=== PATIENT | female | born 1965 | race Caucasian/White ===

== ENCOUNTER 2018-08-17 13:41 | Emergency (ER) | payer OTHER ==
--- NOTE | 2018-08-17 15:22 | ER ---
Nurse's Notes [facility] Name: Zohra De La Garza Age: 53 yrs Sex: Female : 1965 Arrival Date: 08/17/2018 Time: 13:45 Bed 28 Private MD: None, None Diagnosis: Local infection of the skin and subcutaneous tissue, unspecified Presentation: 08/17 13:45 Presenting complaint: Patient states: i got bit by a bunch of little black ants tw2 yesterday morning and my foot has swollen up and it is red. Transition of care: patient was not received from another setting of care. Onset of symptoms was August 17, 2018. Risk Assessment: Do you want to hurt yourself or someone else? Patient reports no desire to harm self or others. Initial Sepsis Screen: Does the patient meet any 2 criteria? No. Patient's initial sepsis screen is negative. Does the patient have a suspected source of infection? No. Patient's initial sepsis screen is negative. Care prior to arrival: None. 13:45 Method Of Arrival: Ambulatory tw2 13:45 Acuity: LOU 4 tw2 Triage Assessment: 16:24 Bite description: by "black ant". 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 - Social history:: Smoking status: Patient/guardian denies using tobacco. - Ebola Screening: : Patient denies travel to an Ebola-affected area in the 21 days before illness onset. Screenin:59 Abuse screen: Denies threats or abuse. Denies injuries from another. Nutritional aj screening: No deficits noted. Tuberculosis screening: No symptoms or risk factors identified. Fall Risk None identified. Assessment: 14:59 General: Appears in no apparent distress. comfortable, obese, Behavior is calm, aj cooperative, appropriate for age. Pain: Denies pain. Neuro: Level of Consciousness is awake, alert, obeys commands, Oriented to person, place, time, situation, Appropriate for age. Respiratory: Airway is patent Respiratory effort is even, unlabored, Respiratory pattern is regular, symmetrical. Derm: Skin is intact, is healthy with good turgor, Skin is pink, warm \\T\\ dry. normal, redness and inflammation to right ankle, multiple breaks in skin noted. 16:22 Reassessment: Patient appears in no apparent distress at this time. No changes from aj previously documented assessment. Patient and/or family updated on plan of care and expected duration. Pain level reassessed. Patient is alert, oriented x 3, equal unlabored respirations, skin warm/dry/pink. Vital Signs: 13:46 BP 150 / 99; Pulse 90; Resp 17; Temp 97.3(TE); Pulse Ox 99% on R/A; Pain 5/10; tw2 ED Course: 13:45 Patient arrived in ED. sb2 13:45 None, None is Private Physician. sb2 13:46 Triage completed. tw2 13:47 Arm band placed on. tw2 14:43 Rebeca Cobb FNP-C [facility]. kb 14:43 Lucas Bangura MD is Attending Physician. kb 14:59 Dara Jordan, RN is Primary Nurse. aj 14:59 Patient has correct armband on for positive identification. aj 16:22 No provider procedures requiring assistance completed. Patient did not have IV access aj during this emergency room visit. Administered Medications: 16:05 Drug: Bactrim (160 mg-800 mg (DS) 1 tablet Route: PO; aj 16:24 Follow up: Response: No adverse reaction aj 16:05 Drug: KeFLEX 500 mg Route: PO; aj 16:25 Follow up: Response: No adverse reaction aj Outcome: 15:21 Discharge ordered by . kb 16:22 Discharged to home ambulatory. aj 16:22 Condition: good 16:22 Discharge instructions given to patient, Instructed on discharge instructions, follow up and referral plans. medication usage, Demonstrated understanding of instructions, follow-up care, medications, Prescriptions given X 4. 16:26 Patient left the ED. aj Signatures: Rebeca Cobb FNP-C PASTRY ARTIST-Ckb Dara Jordan, RN RN aj Dasha Nieves RN RN tw2 Yeni Garcia sb2
--- NOTE | 2018-08-17 15:22 | EDPHYS ---
Physician Documentation [facility] Name: Zohra De La Garza Age: 53 yrs Sex: Female : 1965 Arrival Date: 08/17/2018 Time: 13:45 Bed 28 Private MD: None, None ED Physician Lucas Bangura HPI: 08/17 15:20 This 53 yrs old Female presents to ER via Ambulatory with complaints of kb Insect Bite. 15:20 the patient presents with a swollen area of the lateral aspect of right foot. kb Description: erythematous, swollen, warm. Onset: The symptoms/episode began/occurred yesterday. Possible cause(s): ant bites. Associated signs and symptoms: Pertinent positives: erythema, swelling, Pertinent negatives: discharge, drainage, fever. Modifying factors: the symptoms are alleviated by nothing, the symptoms are aggravated by nothing. Severity of symptoms: At their worst the symptoms were mild, in the emergency department the symptoms are unchanged. The patient has not experienced similar symptoms in the past. The patient has not recently seen a physician. 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 - Social history:: Smoking status: Patient/guardian denies using tobacco. - Ebola Screening: : Patient denies travel to an Ebola-affected area in the 21 days before illness onset. ROS: 15:19 Constitutional: Negative for fever, chills, and weight loss, Cardiovascular: Negative kb for chest pain, palpitations, and edema, Respiratory: Negative for shortness of breath, cough, wheezing, and pleuritic chest pain, Abdomen/GI: Negative for abdominal pain, nausea, vomiting, diarrhea, and constipation, MS/Extremity: Negative for injury and deformity, Neuro: Negative for headache, weakness, numbness, tingling, and seizure. 15:19 Skin: Positive for erythema, swelling, of the lateral aspect of right foot. Exam: 15:19 Constitutional: This is a well developed, well nourished patient who is awake, alert, kb and in no acute distress. Head/Face: Normocephalic, atraumatic. Chest/axilla: Normal chest wall appearance and motion. Nontender with no deformity. No lesions are appreciated. Cardiovascular: Regular rate and rhythm with a normal S1 and S2. No gallops, murmurs, or rubs. Normal PMI, no JVD. No pulse deficits. Respiratory: Lungs have equal breath sounds bilaterally, clear to auscultation and percussion. No rales, rhonchi or wheezes noted. No increased work of breathing, no retractions or nasal flaring. Abdomen/GI: Soft, non-tender, with normal bowel sounds. No distension or tympany. No guarding or rebound. No evidence of tenderness throughout. MS/ Extremity: Pulses equal, no cyanosis. Neurovascular intact. Full, normal range of motion. Neuro: Awake and alert, GCS 15, oriented to person, place, time, and situation. Cranial nerves II-XII grossly intact. Motor strength 5/5 in all extremities. Sensory grossly intact. Cerebellar exam normal. Normal gait. 15:19 Skin: cellulitis, that is minimal, on the lateral aspect of right foot. Vital Signs: 13:46 BP 150 / 99; Pulse 90; Resp 17; Temp 97.3(TE); Pulse Ox 99% on R/A; Pain 5/10; tw2 MDM: 14:43 Patient medically screened. kb 15:19 Data reviewed: vital signs, nurses notes. Data interpreted: Pulse oximetry: on room air kb is 99 %. Interpretation: normal. Counseling: I had a detailed discussion with the patient and/or guardian regarding: the historical points, exam findings, and any diagnostic results supporting the discharge/admit diagnosis, the need for outpatient follow up, a family practitioner, to return to the emergency department if symptoms worsen or persist or if there are any questions or concerns that arise at home. Administered Medications: 16:05 Drug: Bactrim (160 mg-800 mg (DS) 1 tablet Route: PO; aj 16:24 Follow up: Response: No adverse reaction aj 16:05 Drug: KeFLEX 500 mg Route: PO; aj 16:25 Follow up: Response: No adverse reaction aj Disposition: 17:37 Co-signature as Attending Physician, Lucas Bangura MD. rn Disposition: 08/17/18 15:21 Discharged to Home. Impression: Local infection of the skin and subcutaneous tissue, unspecified. - Condition is Stable. - Discharge Instructions: Insect Bite, [id number]. - Prescriptions for Diflucan 150 mg Oral Tablet - take 1 tablet by ORAL route one time for 1 day; 1 tablet. Keflex 500 mg Oral Capsule - take 1 capsule by ORAL route every 8 hours for 7 days; 21 capsule. Tramadol 50 mg Oral Tablet - take 1 tablet by ORAL route every 8 hours as needed; 12 tablet. Bactrim DS 800- 160 mg Oral Tablet - take 1 tablet by ORAL route every 12 hours for 7 days; 14 tablet. - Medication Reconciliation Form, Thank You Letter, Antibiotic Education, Prescription Opioid Use form. - Follow up: Private Physician; When: 2 - 3 days; Reason: Recheck today's complaints, Continuance of care, Re-evaluation by your physician. Follow up: Emergency Department; When: As needed; Reason: Worsening of condition. Signatures: Rebeca Cobb, TY CHAVIS-Dara Charlton RN RN aj Nieto, Roman, MD MD rn Wise, Tara, RN RN tw2 Corrections: (The following items were deleted from the chart) 16:26 15:21 08/17/2018 15:21 Discharged to Home. Impression: Local infection of the skin and aj subcutaneous tissue, unspecified. Condition is Stable. Forms are Medication Reconciliation Form, Thank You Letter, Antibiotic Education, Prescription Opioid Use. Follow up: Private Physician; When: 2 - 3 days; Reason: Recheck today's complaints, Continuance of care, Re-evaluation by your physician. Follow up: Emergency Department; When: As needed; Reason: Worsening of condition. kb
[2018-08-17] MEDS ORDERED: CEPHALEXIN 250 MG CAP ONE (16:04)
[2018-08-17] MEDS ORDERED: SMZ./TMP. 800/160 MG TABLET ONE (16:05)
== END 2018-08-17 16:26 | disposition home or self-care (01) ==
LOC: ER 13:41
DX: L08.9 Local infection of the skin and subcutaneous tissue, unspecified (principal); I10 Essential (primary) hypertension; E11.9 Type 2 diabetes mellitus without complications; Z85.3 Personal history of malignant neoplasm of breast
CPT/HCPCS: 99283

== ENCOUNTER 2018-11-26 20:55 | Emergency (ER) | payer OTHER ==
[2018-11-26] MEDS ORDERED: ALBUTEROL 2.5 MG/3 ML NEB SOL ONE (23:32)
[2018-11-26] MEDS ORDERED: IPRATROPIUM BROM 0.5MG/2.5ML ONE (23:33)
[2018-11-26] MEDS ORDERED: ACETAMINOPHEN 500 MG TAB ONE (23:33)
[2018-11-26 23:42] LABS: Urine Blood NEGATIVE (NEG); Urine Glucose 3+ (NEG); Urine Protein NEGATIVE (NEG); Urine Specific Gravity 1.015 (1.005-1.030); Urine pH 5.5 (5.0-7.0)
[2018-11-27 00:10] LABS: Absolute Lymphocytes (CBC) 1.9 K/uL (0.7-4.9); Absolute Monocytes 0.4 K/uL (0.1-1.3); Absolute Neutrophil 4.3 K/uL (1.8-8.0); Basophils % 0.5 % (0-1.3); Eosinophils % 1.6 % (0-4.4); Hematocrit 41.8 % (36.0-45.0); Lymphocytes % 28.8 % (15.3-44.8); Monocytes % 5.8 % (3.3-12.3); RBC Red Blood Cell Count 4.62 M/uL (3.86-4.86)
[2018-11-27 00:19] LABS: Protime INR 1.13
[2018-11-27 00:25] LABS: ALT/SGPT 101 U/L (12-78); AST/SGOT 185 U/L (15-37); Albumin 3.4 g/dL (3.4-5.0); Alkaline Phosphatase 121 U/L (45-117); BUN Blood Urea Nitrogen 10 mg/dL (7-18); Bicarbonate 25 mmol/L (21-32); Bilirubin Direct 0.2 mg/dL (0-0.2); Bilirubin Total 0.4 mg/dL (0.2-1.0); Glucose Level 355 mg/dL (74-106); Lipase 174 U/L (73-393); Potassium 4.4 mmol/L (3.5-5.1); Protein, Total 7.7 g/dL (6.4-8.2); Sodium Level 135 mmol/L (136-145); Troponin (Emerg Dept Use Only) < 0.02 ng/mL (0.0-0.045)
[2018-11-27 00:38] LABS: Urine RBC <5 /HPF (NONE SEEN)
[2018-11-27 00:39] LABS: Urine Bacteria 20-50 /HPF (<20); Urine Culture Reflex Order REFLEXED
--- NOTE | 2018-11-27 01:49 | ER ---
Nurse's Notes [facility] Name: Zohra De La Garza Age: 53 yrs Sex: Female : 1965 Arrival Date: 11/26/2018 Time: 20:58 Bed 20 Private MD: Diagnosis: Acute Bronchitis;hyperglycemia;elevated liver enzymes Presentation: 11/26 21:07 Presenting complaint: Patient states: Cough for 6 days not improving with ABX. aj Transition of care: patient was not received from another setting of care. Onset of symptoms was November 21, 2018. Risk Assessment: Do you want to hurt yourself or someone else? Patient reports no desire to harm self or others. Initial Sepsis Screen: Does the patient meet any 2 criteria? No. Patient's initial sepsis screen is negative. Does the patient have a suspected source of infection? No. Patient's initial sepsis screen is negative. Care prior to arrival: None. 21:07 Method Of Arrival: Ambulatory aj 21:07 Acuity: LOU 3 aj Triage Assessment: 21:08 General: Appears in no apparent distress. comfortable, Behavior is calm, cooperative, aj appropriate for age. Pain: Denies pain. Neuro: Level of Consciousness is awake, alert, obeys commands, Oriented to person, place, time, situation, Appropriate for age. Respiratory: Reports cough that is hacking, persistent Airway is patent Respiratory effort is even, unlabored, Respiratory pattern is regular, symmetrical. Derm: Skin is intact, is healthy with good turgor, Skin is pink, warm \T\ dry. normal. Historical: - Allergies: 21:08 No Known Allergies; aj - Home Meds: 21:08 B12 sublingual [Active]; Effexor Oral [Active]; gabapentin Oral [Active]; Januvia Oral aj [Active]; Lipitor Oral [Active]; losartan Oral [Active]; Metformin Oral [Active]; nortriptyline Oral [Active]; tamoxifen Oral [Active]; statin [Active]; - PMHx: 21:08 breast cancer; Diabetes - NIDDM; Esophageal Dismotility; Fibromyalgia; Hypertension; aj Pernicious Anemia; - PSHx: 21:08 Double Mastectomy; Cholecystectomy; aj - Immunization history:: Adult Immunizations up to date. - Social history:: Smoking status: Patient/guardian denies using tobacco. - Ebola Screening: : Patient negative for fever greater than or equal to 101.5 degrees Fahrenheit, and additional compatible Ebola Virus Disease symptoms Patient denies exposure to infectious person Patient denies travel to an Ebola-affected area in the 21 days before illness onset No symptoms or risks identified at this time. Screenin:30 Abuse screen: Denies threats or abuse. Denies injuries from another. Nutritional rr5 screening: No deficits noted. Tuberculosis screening: No symptoms or risk factors identified. Fall Risk None identified. Assessment: 21:30 General: Appears in no apparent distress. uncomfortable, Behavior is calm, cooperative, rr5 appropriate for age. Pain: Complains of pain in head and right upper quadrant Pain does not radiate. Pain currently is 6 out of 10 on a pain scale. Quality of pain is described as aching, Pain began gradually, Is intermittent. 21:30 Neuro: Level of Consciousness is awake, alert, obeys commands, Oriented to person, rr5 place, time, situation. Cardiovascular: Capillary refill < 3 seconds Patient's skin is warm and dry. Respiratory: Reports cough that is Airway is patent Respiratory effort is even, unlabored, Respiratory pattern is regular, symmetrical. GI: Abdomen is round. : No signs and/or symptoms were reported regarding the genitourinary system. EENT: No signs and/or symptoms were reported regarding the EENT system. Derm: Skin is intact, Skin temperature is warm. Musculoskeletal: Capillary refill < 3 seconds, Range of motion: intact in all extremities. 22:05 Reassessment: Patient appears in no apparent distress at this time. No changes from rr5 previously documented assessment. 23:30 Reassessment: Patient appears in no apparent distress at this time. Patient and/or rr5 family updated on plan of care and expected duration. Pain level reassessed. awaiting for report Patient states feeling better. Patient states symptoms have improved. 11/27 00:32 Reassessment: Patient appears in no apparent distress at this time. Patient and/or rr5 family updated on plan of care and expected duration. Pain level reassessed. awaiting for reports. 01:30 Reassessment: Patient appears in no apparent distress at this time. Patient and/or rr5 family updated on plan of care and expected duration. Pain level reassessed. Patient states feeling better. Patient states symptoms have improved. 02:00 Reassessment: reassessment done by ED provider. rr5 02:15 Reassessment: Patient appears in no apparent distress at this time. discharge rr5 instruction and medication given and explained with no complaints made. Vital Signs: 11/26 21:08 BP 118 / 76; Pulse 103; Resp 20; Temp 97.8; Pulse Ox 99% on R/A; Weight 97.52 kg; aj Height 5 ft. 5 in. (165.10 cm); 22:00 BP 125 / 70; Pulse 80; Resp 21; Pulse Ox 98% ; rr5 23:30 BP 131 / 59; Pulse 89; Resp 19; Pulse Ox 98% ; rr5 11/27 00:30 BP 137 / 64; Pulse 91; Resp 17; Pulse Ox 99% ; rr5 01:30 BP 125 / 76; Pulse 90; Resp 19; Pulse Ox 98% ; rr5 02:30 BP 121 / 71; Pulse 81; Resp 19; Pulse Ox 98% ; rr5 11/26 21:08 Body Mass Index 35.78 (97.52 kg, 165.10 cm) aj ED Course: 11/26 20:58 Patient arrived in ED. ds1 21:07 Triage completed. aj 21:08 Arm band placed on right wrist. Patient placed in waiting room. aj 21:30 Patient has correct armband on for positive identification. Placed in gown. Bed in low rr5 position. Call light in reach. Side rails up X2. awake overnight monitor on. Pulse ox on. NIBP on. 22:28 Bear Weeks MD is Attending Physician. wa 23:10 Marshall Gaytan, CRUZ is Primary Nurse. rr5 23:13 Patient moved to radiology via wheelchair. sg4 23:13 X-ray completed. Patient tolerated procedure well. sg4 23:16 Patient moved back from radiology. sg4 23:18 Chest Pa And Lat (2 Views) XRAY In Process Unspecified. EDMS 23:30 Initial Neb Treatment Given as ordered Patient was instructed and evaluated on rr5 procedure Patient tolerated procedure well without adverse effect. 11/27 00:00 Missed attempt(s): 20 gauge in right antecubital area. Bleeding controlled, band aid rr5 applied, catheter tip intact. 00:59 Notified ED physician of a critical lab result(s). lactate of 4.2 Dr Weeks notified. bb 01:48 Edenilson Robertson MD is Referral Physician. 02:30 No provider procedures requiring assistance completed. Patient did not have IV access rr5 during this emergency room visit. Administered Medications: 11/26 23:30 Drug: Albuterol 2.5 mg Route: Inhalation; rr5 11/27 02:30 Follow up: Response: No adverse reaction rr5 11/26 23:40 Drug: AtroVENT Aerosol 0.5 mg Route: Inhalation; rr5 11/27 02:30 Follow up: Response: No adverse reaction rr5 11/26 23:45 Drug: Tylenol 1000 mg Route: PO; rr5 11/27 02:30 Follow up: Response: No adverse reaction rr5 Outcome: 01:49 Discharge ordered by . 02:30 Discharged to home ambulatory. rr5 02:30 Condition: stable 02:30 Discharge instructions given to patient, Instructed on discharge instructions, follow up and referral plans. medication usage, Demonstrated understanding of instructions, follow-up care, medications, Prescriptions given X 3. 02:48 Patient left the ED. rr5 Addendum: 11/30/2018 09:41 Addendum: Culture Results: Positive urine culture. No further action required. Other: a a5 No urinary complaints reported by patient per KALI Duke. . Patient was not prescribed antibiotics at discharge. Report given to MITESH for further evaluation and then to him tech for follow up with patient. Signatures: Dispatcher [employer] EDDara Jara RN Adrienne Toribio ds1 Lexy Butt RN RN bb Roberta Santiago RN RN aa5 Bear Weeks MD MD wa Garcia, Susana 4 Marshall Gaytan RN RN rr5
--- NOTE | 2018-11-27 01:50 | EDPHYS ---
Physician Documentation [facility] Name: Zohra De La Garza Age: 53 yrs Sex: Female : 1965 Arrival Date: 11/26/2018 Time: 20:58 Bed 20 Private MD: ED Physician Bear Weeks HPI: 11/27 00:58 This 53 yrs old Female presents to ER via Ambulatory with complaints of Cough.wa 00:58 The patient or guardian reports cough, difficulty breathing. Onset: The wa symptoms/episode began/occurred 5 day(s) ago. Severity of symptoms: At their worst the symptoms were moderate, in the emergency department the symptoms are actually worse. Modifying factors: The symptoms are alleviated by nothing, the symptoms are aggravated by nothing. Associated signs and symptoms: Pertinent negatives: chest pain, diarrhea, ear ache, fever, nausea, sore throat, vomiting. The patient has experienced similar episodes in the past, several times. The patient has not recently seen a physician. states took left over augmentin the past 2 days but did not help. 00:59 h/o breast CA and DM. wa Historical: - Allergies: 11/26 21:08 No Known Allergies; aj - Home Meds: 21:08 B12 sublingual [Active]; Effexor Oral [Active]; gabapentin Oral [Active]; Januvia Oral aj [Active]; Lipitor Oral [Active]; losartan Oral [Active]; Metformin Oral [Active]; nortriptyline Oral [Active]; tamoxifen Oral [Active]; statin [Active]; - PMHx: 21:08 breast cancer; Diabetes - NIDDM; Esophageal Dismotility; Fibromyalgia; Hypertension; aj Pernicious Anemia; - PSHx: 21:08 Double Mastectomy; Cholecystectomy; aj - Immunization history:: Adult Immunizations up to date. - Social history:: Smoking status: Patient/guardian denies using tobacco. - Ebola Screening: : Patient negative for fever greater than or equal to 101.5 degrees Fahrenheit, and additional compatible Ebola Virus Disease symptoms Patient denies exposure to infectious person Patient denies travel to an Ebola-affected area in the 21 days before illness onset No symptoms or risks identified at this time. ROS: 11/27 01:00 Eyes: Negative for injury, pain, redness, and discharge, Neck: Negative for injury, wa pain, and swelling, Cardiovascular: Negative for chest pain, palpitations, and edema, Abdomen/GI: Negative for abdominal pain, nausea, vomiting, diarrhea, and constipation, Back: Negative for injury and pain, : Negative for injury, bleeding, discharge, and swelling, MS/Extremity: Negative for injury and deformity, Skin: Negative for injury, rash, and discoloration, Neuro: Negative for headache, weakness, numbness, tingling, and seizure. ENT: Positive for Negative for rhinorrhea, sinus congestion. Respiratory: Positive for cough, shortness of breath. All other systems are negative. Exam: 01:00 Constitutional: This is a well developed, well nourished patient who is awake, alert, wa and in no acute distress. Head/Face: Normocephalic, atraumatic. Eyes: Pupils equal round and reactive to light, extra-ocular motions intact. Lids and lashes normal. Conjunctiva and sclera are non-icteric and not injected. Cornea within normal limits. Periorbital areas with no swelling, redness, or edema. ENT: Nares patent. No nasal discharge, no septal abnormalities noted. Tympanic membranes are normal and external auditory canals are clear. Oropharynx with no redness, swelling, or masses, exudates, or evidence of obstruction, uvula midline. Mucous membranes moist. Neck: Trachea midline, no thyromegaly or masses palpated, and no cervical lymphadenopathy. Supple, full range of motion without nuchal rigidity, or vertebral point tenderness. No Meningismus. Chest/axilla: Normal chest wall appearance and motion. Nontender with no deformity. No lesions are appreciated. Cardiovascular: Regular rate and rhythm with a normal S1 and S2. No gallops, murmurs, or rubs. Normal PMI, no JVD. No pulse deficits. Abdomen/GI: Soft, non-tender, with normal bowel sounds. No distension or tympany. No guarding or rebound. No evidence of tenderness throughout. Back: No spinal tenderness. No costovertebral tenderness. Full range of motion. Skin: Warm, dry with normal turgor. Normal color with no rashes, no lesions, and no evidence of cellulitis. MS/ Extremity: Pulses equal, no cyanosis. Neurovascular intact. Full, normal range of motion. Neuro: Awake and alert, GCS 15, oriented to person, place, time, and situation. Cranial nerves II-XII grossly intact. Motor strength 5/5 in all extremities. Sensory grossly intact. Cerebellar exam normal. Normal gait. Psych: Awake, alert, with orientation to person, place and time. Behavior, mood, and affect are within normal limits. 01:00 Respiratory: the patient does not display signs of respiratory distress, Respirations: normal, Breath sounds: coarse bilaterally. Vital Signs: 11/26 21:08 BP 118 / 76; Pulse 103; Resp 20; Temp 97.8; Pulse Ox 99% on R/A; Weight 97.52 kg; aj Height 5 ft. 5 in. (165.10 cm); 22:00 BP 125 / 70; Pulse 80; Resp 21; Pulse Ox 98% ; rr5 23:30 BP 131 / 59; Pulse 89; Resp 19; Pulse Ox 98% ; rr5 11/27 00:30 BP 137 / 64; Pulse 91; Resp 17; Pulse Ox 99% ; rr5 01:30 BP 125 / 76; Pulse 90; Resp 19; Pulse Ox 98% ; rr5 02:30 BP 121 / 71; Pulse 81; Resp 19; Pulse Ox 98% ; rr5 11/26 21:08 Body Mass Index 35.78 (97.52 kg, 165.10 cm) aj MDM: 11/26 22:28 Patient medically screened. 11/27 01:01 Differential Diagnosis: Other eval to r/o pna, sepsis. wa 01:43 Data reviewed: vital signs, nurses notes, lab test result(s), radiologic studies. Test wa interpretation: by ED physician or midlevel provider: CXR: no acute process. labs noted for elevated lactic acid of 4.2; 3+ glucosuria; hyperglycemia at 355. elevated LFTs . 01:44 Test interpretation: by ED physician or midlevel provider: EKG: HR 90 low voltage. no wa obvious ischemic changes of dysrythmia. 01:48 Response to treatment: the patient's symptoms have markedly improved after treatment. 11/26 22:59 Order name: Basic Metabolic Panel; Complete Time: 01:35 11/26 22:59 Order name: Blood Culture Adult (2) 11/26 22:59 Order name: CBC with Diff; Complete Time: :34 11/26:59 Order name: Lactate; Complete Time: :34 11/26 22:59 Order name: LFT's; Complete Time: 01:35 az 11/26 22:59 Order name: Lipase; Complete Time: 01:34 az 11/26 22:59 Order name: Procalcitonin; Complete Time: 01:34 az 11/26 22:59 Order name: Protime (+inr); Complete Time: 01:35 az 11/26 22:59 Order name: Troponin (emerg Dept Use Only); Complete Time: 01:34 az 11/26 22:59 Order name: Urine Microscopic Only; Complete Time: 01:33 az 11/26 22:59 Order name: Chest Pa And Lat (2 Views) XRAY az 11/26 22:59 Order name: Flu; Complete Time: 01:34 az 11/26 23:21 Order name: Urine Dipstick--Ancillary (enter results); Complete Time: 01:33 em1 11/27 00:41 Order name: Urine Culture EDVT 11/26 22:59 Order name: Cardiac monitoring; Complete Time: 23:55 az 11/26 22:59 Order name: EKG - Nurse/Tech; Complete Time: 23:55 az 11/26 22:59 Order name: IV Saline Lock - Large Bore; Complete Time: 23:55 az 11/26 22:59 Order name: Labs collected and sent; Complete Time: 23:55 az 11/26 22:59 Order name: O2 Per Protocol; Complete Time: 23:55 az 11/26 22:59 Order name: O2 Sat Monitoring; Complete Time: 23:55 az 11/26 22:59 Order name: Urine Dipstick-Ancillary (obtain specimen); Complete Time: 23:55 az Administered Medications: 11/26 23:30 Drug: Albuterol 2.5 mg Route: Inhalation; rr5 11/27 02:30 Follow up: Response: No adverse reaction rr5 11/26 23:40 Drug: AtroVENT Aerosol 0.5 mg Route: Inhalation; rr5 11/27 02:30 Follow up: Response: No adverse reaction rr5 11/26 23:45 Drug: Tylenol 1000 mg Route: PO; rr5 11/27 02:30 Follow up: Response: No adverse reaction rr5 Disposition: 11/27/18 01:49 Discharged to Home. Impression: Acute Bronchitis, hyperglycemia, elevated liver enzymes. - Condition is Stable. - Discharge Instructions: Acute Bronchitis, [id number], Cough, Adult, [id number], Hyperglycemia, [id number]. - Prescriptions for Albuterol Sulfate 2.5 mg /3 mL (0.083 %) Inhalation Solution for Nebulization - inhale 1 unit by NEBULIZATION route every 8 hours As needed; 1 box. Zithromax Z- Edinson 250 mg Oral Tablet - take 1 tablet by ORAL route as directed for 5 days Day 1 - take two (2) tablets one time. Day 2, 3, 4 , 5 take one (1) tablet once daily.; 6 tablet. Albuterol Sulfate 90 mcg/actuation - inhale 1-2 puff by INHALATION route every 4-6 hours; 1 Inhaler. - Medication Reconciliation Form, Thank You Letter, Antibiotic Education, Prescription Opioid Use form. - Follow up: Edenilson Robertson MD; When: 1 - 2 days; Reason: Recheck today's complaints. - Problem is new. - Symptoms have improved. - Notes: take medication as prescribed. see your doctor for further evaluation of high blood sugar Signatures: Dispatcher [employer] EDDara Jara RN RN Bear Tijerina MD MD wa Roque, Raymond RN RN rr5 Corrections: (The following items were deleted from the chart) 02:48 01:49 11/27/2018 01:49 Discharged to Home. Impression: Acute Bronchitis; hyperglycemia; rr5 elevated liver enzymes. Condition is Stable. Forms are Medication Reconciliation Form, Thank You Letter, Antibiotic Education, Prescription Opioid Use. Follow up: Edenilson Robertson; When: 1 - 2 days; Reason: Recheck today's complaints. Problem is new. Symptoms have improved. wa
--- NOTE | 2018-11-27 10:24 | RAD REPORT ---
EXAM DESCRIPTION: RAD - Chest Pa And Lat (2 Views) - 11/26/2018 11:20 pm CLINICAL HISTORY: COUGH Chest pain. COMPARISON: No comparisons FINDINGS: Interstitial markings are mildly prominent, likely representing interstitial pneumonitis. No focal consolidation typical of pneumonia seen. The heart is normal in size. No displaced fractures . IMPRESSION: Mild interstitial pneumonitis suspected.
--- NOTE | 2018-11-28 09:10 | EKG ---
Test Date: 2018-11-26 Test Time: 23:45:19 X Ray Operator: RR MEASUREMENT RESULTS: Intervals: Rate: 90 NH: 138 QRSD: 78 QT: 338 QTc: 413 [place]: P: 61 NH: 138 QRS: 60 T: 68 INTERPRETIVE STATEMENTS: Normal sinus rhythm Low voltage QRS Borderline ECG No previous ECG available for comparison Electronically Signed On 11-28-18 09:09:21 SMASH PIECER by Aram Bragg
== END 2018-11-27 02:48 | disposition home or self-care (01) ==
LOC: ER 20:55
DX: J20.9 Acute bronchitis, unspecified (principal); E11.65 Type 2 diabetes mellitus with hyperglycemia; R74.8 Abnormal levels of other serum enzymes; I10 Essential (primary) hypertension; M79.7 Fibromyalgia; D51.0 Vitamin B12 deficiency anemia due to intrinsic factor deficiency; Z79.84 Long term (current) use of oral hypoglycemic drugs; Z79.899 Other long term (current) drug therapy; Z85.3 Personal history of malignant neoplasm of breast
CPT/HCPCS: 36415; 71046; 80048; 80076; 81003; 81015; 83605; 83690; 84145; 84484; 85025; 85610; 87040; 87077; 87086; 87088; 87186; 87804; 93005; 99285